=== PATIENT | female | born 1990 | race Caucasian/White ===

== ENCOUNTER → 2016-06-27 | Outpatient (CLI) | payer OTHER ==
[2016-06-27 08:49] LABS: ALANINE AMINOTRANSFERASE 30 U/L (9-52); ALBUMIN 3.9 g/dL (3.5-5.0); ALKALINE PHOSPHATASE 57 U/L (38-126); ASPARTATE AMINO TRANSFERASE 18 U/L (14-36); BILIRUBIN,TOTAL 0.4 mg/dL (0.2-1.3); CHOLESTEROL 189.56 mg/dL (0-200); Direct HDL 60 mg/dL (>40); TOTAL PROTEIN 7.4 g/dL (6.3-8.2); TRIGLYCERIDES 224 mg/dL (<150)
[2016-06-27 09:01] LABS: DIRECT LDL 96 mg/dL (<100)
[2016-06-27 09:03] LABS: VLDL CHOLESTEROL 44.8 mg/dL (10-31)
== END ==
LOC: OD 07:18
PROVIDERS: ATTEND Internal Medicine Cardiovascular Disease
DX: E78.5 Hyperlipidemia, unspecified (principal); R73.01 Impaired fasting glucose; E66.09 Other obesity due to excess calories
CPT/HCPCS: 36415; 80061; 80076; 83036